=== PATIENT | female | born 1955 ===

== ENCOUNTER 2019-06-03 10:00 | Day surgery (SDC) | payer OTHER ==
[~2019-06-03 10:00] MED LIST: COZAAR100 MG PO; NORVASC2.5 M1 PO; SYNTHROID112 MCG PO
[2019-06-03] MEDS ORDERED: PERCOCET 5-3251 EACH PO (15:31)
[2019-06-03] MEDS ORDERED: COLACE100 MG PO (15:31)
== END 2019-06-03 18:00 | disposition home or self-care (01) ==
LOC: CIR.AMB 10:00
DX: D12.8 Benign neoplasm of rectum (principal)